=== PATIENT | male | born 1975 | race Caucasian/White ===

== ENCOUNTER 2018-06-15 19:09 | Outpatient (CLI) | payer OTHER ==
--- NOTE | 2018-06-16 01:19 | Ultrasound Report ---
Reason: ABDOMINAL PAIN,RIGHT UPPER QUADRANT Procedure Date: 06/15/2018 Accession Number: [id number] / [id number] Procedure: US - Abdomen Complete CPT Code: FULL RESULT: EXAM: ABDOMEN ULTRASOUND EXAM DATE: 06/15/2018 08:07 PM. CLINICAL HISTORY: ABDOMINAL PAIN,RIGHT UPPER QUADRANT. COMPARISON: None. TECHNIQUE: Real-time scanning was performed with static images obtained. FINDINGS: Liver: Liver parenchyma is heterogeneous and mildly hyperechoic. No discrete liver masses or intrahepatic bile duct dilation. However, evaluation for masses is limited secondary to the echogenicity. 16 cm. Main portal vein flow: Hepatopetal. Gallbladder: Gallstones are noted. No pericholecystic fluid or gallbladder wall thickening. Negative sonographic Leon's sign. Biliary System: Common bile duct measures 3.9 mm. No intrahepatic or extrahepatic ductal dilatation. Pancreas: Visualized portion is unremarkable. Kidneys: Right: 11.5 cm longitudinally. Normal. No contour-deforming mass, stones, or hydronephrosis. Left: 11.3 cm longitudinally. Normal. No contour-deforming mass, stones, or hydronephrosis. Spleen: 10 x 5.1 x 4.6 cm. Normal in size and echotexture. Aorta and Inferior Vena Cava: Not well seen due to bowel gas. No definite aneurysm of the mid and distal abdominal aorta. Proximal aorta not seen. Normal IVC. Other: Study limited due to bowel gas and body habitus. IMPRESSION: 1. Study limited due to body habitus and bowel gas. 2. Fatty liver. No mass. 3. Gallstones. No sonographic findings concerning for acute cholecystitis. Normal caliber common bile duct. RADIA
== END 2018-06-15 19:10 | disposition home or self-care (01) ==
LOC: DI 19:09
PROVIDERS: ATTEND Family Medicine
DX: R10.11 Right upper quadrant pain (principal); K76.0 Fatty (change of) liver, not elsewhere classified; K80.20 Calculus of gallbladder without cholecystitis without obstruction
CPT/HCPCS: 76700

== ENCOUNTER 2018-06-29 09:00 | Outpatient (CLI) | payer OTHER | END 2018-06-29 09:01 | disposition home or self-care (01) | LOC: RT 09:00 | PROVIDERS: ATTEND Internal Medicine Gastroenterology | DX: E66.01 Morbid (severe) obesity due to excess calories (principal); H91.90 Unspecified hearing loss, unspecified ear; I10 Essential (primary) hypertension; K80.20 Calculus of gallbladder without cholecystitis without obstruction | CPT/HCPCS: 36415; 80053; 85025; 93005 ==

== ENCOUNTER 2018-06-29 09:12 | Outpatient (CLI) | payer OTHER ==
[2018-06-29 10:12] LABS: BASOPHILS % (AUTO) 0.7 %; EOSINOPHILS # (AUTO) 0.2 10^3/uL (0.0-0.7); EOSINOPHILS % (AUTO) 3.6 %; LYMPHOCYTES # (AUTO) 2.1 10^3/uL (1.5-3.5); LYMPHOCYTES % (AUTO) 32.2 %; MEAN CORPUSCULAR HEMOGLOBIN 27.2 pg (27.0-31.0); MEAN CORPUSCULAR HGB CONC 33.7 g/dL (32.0-36.0); MEAN CORPUSCULAR VOLUME 80.8 fL (80.0-94.0); MEAN PLATELET VOLUME 8.1 fL (7.4-11.4); MONOCYTES # (AUTO) 0.4 10^3/uL (0.0-1.0); NEUTROPHILS # (AUTO) 3.6 10^3/uL (1.5-6.6); NEUTROPHILS % (AUTO) 56.5 %; PLT - PLATELET COUNT 287 10^3/uL (130-450); RED BLOOD COUNT 5.14 10^6/uL (4.70-6.10); RED CELL DISTRIBUTION WIDTH 13.5 % (12.0-15.0); WHITE BLOOD COUNT 6.4 x10^3/uL (4.8-10.8)
[2018-06-29 10:26] LABS: BILIRUBIN,TOTAL 0.6 mg/dL (0.2-1.0); CALCIUM 9.3 mg/dL (8.5-10.3); CREATININE 0.8 mg/dL (0.6-1.2); TOTAL PROTEIN 7.9 g/dL (6.7-8.2)
== END 2018-06-29 09:13 | disposition home or self-care (01) ==
LOC: LAB 09:12
PROVIDERS: ATTEND Internal Medicine Gastroenterology
DX: E66.01 Morbid (severe) obesity due to excess calories (principal); I10 Essential (primary) hypertension; K80.20 Calculus of gallbladder without cholecystitis without obstruction
CPT/HCPCS: 36415; 80053; 85025

== ENCOUNTER 2018-07-03 10:23 | Day surgery (SDC) | payer OTHER ==
[2018-07-03] MEDS ORDERED: LACTATED RINGERS 1,000 ML IV ONE ×2 (10:39→13:23)
[2018-07-03] MEDS ORDERED: ceFAZolin 2 GM/50 ML 2 GM/50 ML BAG IV ONE ×2 (11:06→13:15)
--- NOTE | 2018-07-03 11:09 | ANESTHESIA ---
Pre-Anesthesia VS, & Labs - Diagnosis Gallstones - Procedure Lap kurt Vital Signs: Temp Pulse Resp BP Pulse Ox 37.4 C 82 16 145/95 H 94 07/03/18 16:25 07/03/18 16:25 07/03/18 16:25 07/03/18 16:25 07/03/18 16:25 Height 6 ft 2 in Height 6 ft 2 in Weight (kg) 141.1 kg Home Medications and Allergies Home Medications: Ambulatory Orders Multivitamin [Multiple Vitamins] 1 each PO DAILY 06/30/18 Olmesartan/Hydrochlorothiazide [Benicar Hct 40-12.5 mg Tablet] 40 mg PO DAILY 05/27/14 Multivitamin [Multiple Vitamins] 1 each PO DAILY 06/30/18 Allergies/Adverse Reactions: Allergies Allergy/AdvReac Type Severity Reaction Status Date / Time No Known Drug Allergies Allergy Verified 01/26/16 07:34 Anes History & Medical History - Medical History Cardiovascular: reports: Hypertension, Arrhythmia Pulmonary: reports: None Gastrointestinal: reports: None Urinary: reports: Kidney stones Musculoskeletal: reports: None Endocrine/Autoimmune: reports: None Skin: reports: None Smoking Status: Never smoker
[2018-07-03] MEDS ORDERED: BUPIVACAINE 0.5% PF 30 ML VIAL ONE (11:43)
--- NOTE | 2018-07-03 11:50 | ANESTHESIA ---
Pre-Anesthesia VS, & Labs - Diagnosis Symptomatic gallstones - Procedure Lap Eva with possible IOC Vital Signs: Temp Pulse Resp BP Pulse Ox 36.6 C 81 16 153/97 H 95 07/03/18 10:35 07/03/18 10:35 07/03/18 10:35 07/03/18 10:35 07/03/18 10:35 Height 6 ft 2 in Weight (kg) 141.1 kg - NPO >8 hours Last Fluid Intake: 0600 H2O Home Medications and Allergies Home Medications: Ambulatory Orders Multivitamin [Multiple Vitamins] 1 each PO DAILY 06/30/18 Olmesartan/Hydrochlorothiazide [Benicar Hct 40-12.5 mg Tablet] 40 mg PO DAILY 05/27/14 Multivitamin [Multiple Vitamins] 1 each PO DAILY 06/30/18 Allergies/Adverse Reactions: Allergies Allergy/AdvReac Type Severity Reaction Status Date / Time No Known Drug Allergies Allergy Verified 01/26/16 07:34 Anes History & Medical History - Anesthetic History Family history of Anesthesia Complications: Denies Family history of Malignant Hyperthermia: Denies - Medical History Cardiovascular: reports: Hypertension Pulmonary: reports: None Gastrointestinal: reports: None Urinary: reports: Kidney stones Neuro: reports: None Musculoskeletal: reports: None Endocrine/Autoimmune: reports: None Blood Disorders: reports: None Skin: reports: None Smoking Status: Never smoker Exam General: Alert, Oriented x3, Cooperative, No acute distress Dental: WNL, Other (promenent incisors) Mouth Openin Fingerbreadth Neck Mobility: Normal Mallampati classification: II Thyromental Distance: 4-6 cm Respiratory: Lungs clear, Normal breath sounds, No respiratory distress, No accessory muscle use Cardiovascular: Regular rate, Normal S1, Normal S2, No murmurs Mental/Cognitive Status: Alert/Oriented X3, Normal for patient Plan Anesthesia Type: General Consent for Procedure(s) Verified and Reviewed: Yes Code Status: Attempt Resuscitation ASA classification: 2-Mild systemic disease Is this case an emergency?: No
[2018-07-03] MEDS ORDERED: BUPIVACAINE 0.5%-EPI 1:200000 PF 30 ML VIAL ONE (12:17)
[2018-07-03] MEDS ORDERED: PROPOFOL 200 MG/20 ML VIAL IVP ONE (13:15)
[2018-07-03] MEDS ORDERED: KETOROLAC 30 MG/ML VIAL IVP ONE (13:15)
[2018-07-03] MEDS ORDERED: MIDAZOLAM 2 MG/2 ML VIAL IVP ONE (13:15)
[2018-07-03] MEDS ORDERED: ROCURONIUM 50 MG/5 ML VIAL IVP ONE (13:15)
[2018-07-03] MEDS ORDERED: DEXAMETHASONE 4 MG/ML VIAL IVP ONE (13:15)
[2018-07-03] MEDS ORDERED: fentaNYL 250 MCG/5 ML VIAL IVP ONE (13:15)
[2018-07-03] MEDS ORDERED: ONDANSETRON 4 MG/2 ML VIAL IVP ONE (13:15)
[2018-07-03] MEDS ORDERED: BUPIVACAINE 0.5%-EPI 1:200000 PF 10 ML VIAL SUBQ ONE ×2 (13:26→14:38)
[2018-07-03] MEDS ORDERED: SUGAMMADEX 200 MG/2 ML VIAL IVP ONE (13:56)
[2018-07-03] MEDS ORDERED: SUGAMMADEX 500 MG/5 ML VIAL IVP ONE (13:59)
[2018-07-03] MEDS ORDERED: ONDANSETRON 4 MG/2 ML VIAL IVP PRN (14:55)
[2018-07-03] MEDS ORDERED: IBUPROFEN 600 MG TABLET PO PRN (14:55)
[2018-07-03] MEDS ORDERED: ACETAMINOPHEN 325 MG TABLET PO PRN (14:55)
[2018-07-03] MEDS ORDERED: oxyCODONE 5 MG TABLET PO PRN (14:55)
[2018-07-03 16:27] VITALS: BP 145/95
--- NOTE | 2018-07-04 02:26 | OPERATIVE REPORT ---
DATE OF SERVICE: 07/03/2018 Physician: Elton Crump MD PREOPERATIVE DIAGNOSIS: Symptomatic gallbladder disease. POSTOPERATIVE DIAGNOSIS: Symptomatic gallbladder disease. PROCEDURE PERFORMED: Laparoscopic cholecystectomy. ANESTHESIA: General endotracheal by Deja Aguilar CRNA. SURGEON: Elton Crump MD. ESTIMATED BLOOD LOSS: 10 mL. COMPLICATIONS: None. FINDINGS: Laparoscopy revealed a chronically thickened gallbladder with mild pericholecystic adhesio ns, normal-appearing stomach, duodenum, large bowel, and liver, which appeared to be enlarged, consis tent with fatty change. Cystic duct was of normal caliber. Common duct was not visualized. Followi ng resection, the gallbladder was seen to contain innumerable yellow multifaceted stones of varying s izes and shapes measuring from 1 mm up to 15 mm in size. Several hundred were present. INDICATIONS: Patient is a 43-year-old gentleman with recurrent episodes of right upper quadrant pain , postprandial in nature. Evaluation included ultrasonography showing multiple gallstones within the gallbladder, normal bile ducts, normal chemistries except for mild transaminase elevation. He was f elt to be suffering from symptomatic gallbladder disease and advised to undergo laparoscopic cholecys tectomy. TECHNIQUE: After informed consent, the patient was taken to the operating room and was placed under general endotracheal anesthesia. Preoperative preparation included application of sequential calf co mpression boots and administration of 3 grams of cefazolin intravenously within an hour of the incisi on. Morbid obesity made the surgery technically challenging. A transverse incision was made along the superior edge of the umbilicus and carried down through the layers of the abdominal wall until the peritoneum was identified and entered sharply. A 10 mm Magen cannula was inserted and pneumoperitoneum achieved with carbon dioxide. A 10 mm 30-degree Juan t elescope was inserted. Laparoscopy was carried out with findings noted above. Three additional 5 mm ports were placed in the right upper quadrant. The gallbladder was grasped and retracted in a cepha lad and lateral direction. Pericholecystic adhesions were lysed with electrocautery. The cystic tri angle of Calot was exposed and carefully dissected, isolating the cystic duct and artery adjacent to the gallbladder. The critical view of safety was obtained. The cystic duct was triply clipped dista lly, doubly proximally, and divided between. The cystic artery was doubly clipped proximally and dis tally and divided between. The gallbladder was excised from the liver bed using electrocautery for d issection and hemostasis. It was detached intact, placed in an organ retrieval bag, extracted from t he umbilical port site, opened on the side table with findings noted above and then the tissue sent f or pathologic evaluation. After hemostasis had been assured, the right upper quadrant was copiously irrigated with saline solut ion, following which instruments and cannulas were removed under direct vision. Pneumoperitoneum was allowed to escape and the incisions were closed in layers using continuous 0 Vicryl, reapproximated in the midline fascia at the umbilicus, followed by 4-0 Monocryl subcuticular skin closure at all the port sites. Then 30 mL of 0.5% Marcaine with epinephrine was infiltrated into the incision to amadou t in postoperative analgesia. Dermabond was applied. Anesthesia was terminated and patient was juan sferred to the recovery room in satisfactory condition. Sponge and needle counts were correct x2. N o drains were used. TD: 07/03/2018 15:18
== END 2018-07-03 10:24 | disposition home or self-care (01) ==
LOC: SDS 10:23
PROVIDERS: ATTEND Internal Medicine Gastroenterology
PROC: 0FT44ZZ Resection of Gallbladder, Percutaneous Endoscopic Approach (ICD-10-PCS; principal; 2018-07-03 12:54)
DX: K80.10 Calculus of gallbladder with chronic cholecystitis without obstruction (principal); I10 Essential (primary) hypertension; E66.01 Morbid (severe) obesity due to excess calories; Z68.41 Body mass index [BMI] 40.0-44.9, adult; I49.9 Cardiac arrhythmia, unspecified
CPT/HCPCS: 47562; J0690; J3010; J7120

== ENCOUNTER 2019-10-10 05:12 | Emergency (ER) | payer OTHER ==
[2019-10-10 05:38] LABS: BILIRUBIN,URINE NEGATIVE (NEGATIVE); GLUCOSE, URINE (UA) NEGATIVE (NEGATIVE); KETONES,URINE (UA) NEGATIVE (NEGATIVE); LEUKOCYTE ESTERASE, URINE NEGATIVE (NEGATIVE); NITRITE,URINE NEGATIVE (NEGATIVE); OCCULT BLOOD,URINE TRACE-INTA (NEGATIVE); PROTEIN,URINE NEGATIVE (NEGATIVE); UROBILINOGEN,URINE 0.2 (NORMAL) E.U./dL (NORMAL)
[2019-10-10 05:40] LABS: CLARITY,URINE CLEAR (CLEAR)
[2019-10-10] MEDS ORDERED: KETOROLAC 30 MG/ML VIAL IVP STA (06:16)
[2019-10-10 06:34] LABS: BASOPHILS # (AUTO) 0.1 10^3/uL (0.0-0.1); BASOPHILS % (AUTO) 0.6 %; EOSINOPHILS # (AUTO) 0.3 10^3/uL (0.0-0.7); EOSINOPHILS % (AUTO) 3.3 %; HGB - HEMOGLOBIN 13.8 g/dL (14.0-18.0); LYMPHOCYTES # (AUTO) 3.1 10^3/uL (1.5-3.5); LYMPHOCYTES % (AUTO) 31.6 %; MEAN CORPUSCULAR HGB CONC 32.3 g/dL (32.0-36.0); MEAN CORPUSCULAR VOLUME 83.6 fL (80.0-94.0); MEAN PLATELET VOLUME 10.4 fL (7.4-11.4); MONOCYTES # (AUTO) 0.8 10^3/uL (0.0-1.0); MONOCYTES % (AUTO) 8.5 %; NEUTROPHILS # (AUTO) 5.5 10^3/uL (1.5-6.6); NEUTROPHILS % (AUTO) 55.8 %; PLT - PLATELET COUNT 313 10^3/uL (130-450); RED BLOOD COUNT 5.11 10^6/uL (4.70-6.10); WHITE BLOOD COUNT 9.8 x10^3/uL (4.8-10.8)
[2019-10-10 06:46] LABS: ALBUMIN/GLOBULIN RATIO 1.1 (1.0-2.2); BILIRUBIN,TOTAL 0.4 mg/dL (0.2-1.0); CALCIUM 9.2 mg/dL (8.5-10.3); CREATININE 0.9 mg/dL (0.6-1.2); TOTAL PROTEIN 7.8 g/dL (6.7-8.2)
[2019-10-10 06:49] VITALS: BP 138/88
--- NOTE | 2019-10-10 06:50 | CT Report ---
Reason: R flank pain Procedure Date: 10/10/2019 Accession Number: [id number] / [id number] Procedure: CT - Abdomen/Pelvis WO CPT Code: Final Report FULL RESULT: EXAM: CT ABDOMEN AND PELVIS EXAM DATE:10/10/2019 06:39 AM CLINICAL HISTORY: Right flank pain. History of urinary stones. COMPARISONS: None. TECHNIQUE: Routine helical CT imaging was performed through the abdomen and pelvis without IV contrast or oral contrast. Reconstructions: Coronal and sagittal. In accordance with CT protocol optimization, one or more of the following dose reduction techniques were utilized for this exam: automated exposure control, adjustment of mA and/or KV based on patient size, or use of iterative reconstruction technique. FINDINGS: Lung Bases: Unremarkable. Liver: The liver is globally enlarged measuring 19.3 cm.. Gallbladder/Bile Ducts: The gallbladder surgically absent. No bile duct dilatation. Spleen: Unremarkable. Pancreas: Unremarkable. Adrenal Glands: Unremarkable. Kidneys: A 2 mm stone at the distal right ureter results in moderate right hydroureter and hydronephrosis without appreciable perinephric stranding. The left kidney is intact. No left obstructive urinary stones. Peritoneal Cavity/Bowel: Colonic diverticula. Otherwise, the bowel is normal in caliber and contour. Pelvic Organs: Unremarkable. Vasculature: Unremarkable. Bones: Unremarkable. Other: None. IMPRESSION: 1. Obstructive uropathy: 2 mm obstructing stone at the right distal ureter. 2. Colonic diverticulosis. 3. Hepatomegaly. 4. Status post cholecystectomy. RADIA
--- NOTE | 2019-10-10 06:57 | ED Physician Documentation ---
PD HPI ABD PAIN - Stated complaint Stated Complaint: R SIDE BACK PX - Chief complaint Chief Complaint: Back Pain - History obtained from History obtained from: Patient - History of Present Illness Timing - onset: Today (44-year-old gentleman with remote history of kidney stones. Never needed an intervention, kidney stones about 15 years ago. He has had urgency without dysuria for about 2 weeks. At the outset he had mild right flank pain. Since then he really has not had any pain until this morning at 3 AM when he had more severe right flank pain which is nonradiating. Some very mild nausea. No vomiting. No changes in bowel movements.) - Treatment prior to arrival Treatment prior to arrival: He called his primary care physician who did a telehealth appointment a few days ago. He was prescribed Flomax which he has been taking for presumed kidney stone. Review of Systems Constitutional: denies: Fever, Chills Cardiac: denies: Chest pain / pressure, Palpitations Respiratory: denies: Dyspnea, Cough GI: reports: Abdominal Pain, Nausea. denies: Vomiting PD PAST MEDICAL HISTORY - Past Medical History Past Medical History: Yes Cardiovascular: Hypertension Respiratory: None Neuro: None Endocrine/Autoimmune: None GI: None : Kidney stones HEENT: Chronic hearing loss, Other Psych: None Musculoskeletal: None Derm: None - Past Surgical History Past Surgical History: No - Present Medications Home Medications: Ambulatory Orders Medication Instructions Recorded Confirmed Olmesartan/Hydrochlorothiazide 40 mg PO DAILY 05/27/14 06/30/18 [Benicar Hct 40-12.5 mg Tablet] Multivitamin [Multiple Vitamins] 1 each PO DAILY 06/30/18 06/30/18 Hydrocodone/Acetaminophen 1 - 2 each PO Q6H PRN #14 tablet 10/10/19 [Hydrocodon-Acetaminophen 5-325] Ibuprofen [Motrin] 800 mg PO Q8H PRN #30 tablet 10/10/19 - Allergies Allergies/Adverse Reactions: Allergies Allergy/AdvReac Type Severity Reaction Status Date / Time No Known Drug Allergies Allergy Verified 10/10/19 05:26 - Social History Does the pt smoke?: No Smoking Status: Never smoker Does the pt drink ETOH?: No Does the pt have substance abuse?: No - Immunizations Immunizations are current?: Yes - POLST Patient has POLST: No PD ED PE NORMAL - Vitals Vital signs reviewed: Yes - General General: Alert and oriented X 3, No acute distress - HEENT HEENT: PERRL, EOMI - Neck Neck: Supple, no meningeal sign, No bony TTP - Cardiac Cardiac: RRR, No murmur - Respiratory Respiratory: No respiratory distress, Clear bilaterally - Abdomen Abdomen: Normal bowel sounds, Soft, Non tender - Extremities Extremities: No edema, No calf tenderness / cord - Neuro Neuro: Alert and oriented X 3, Normal speech Results - Vitals Vitals: Vital Signs - 24 hr 10/10/19 10/10/19 10/10/19 05:24 06:10 06:27 Temperature 36.8 C Heart Rate 68 79 Respiratory 17 17 16 Rate Blood Pressure 165/90 H 143/94 H O2 Saturation 95 99 10/10/19 10/10/19 06:38 06:45 Temperature Heart Rate 58 L Respiratory 17 16 Rate Blood Pressure 138/88 H O2 Saturation 98 Oxygen O2 Source Room air - Labs Labs: Laboratory Tests 10/10/19 10/10/19 10/10/19 05:15 05:45 05:45 WBC 9.8 RBC 5.11 Hgb 13.8 L Hct 42.7 MCV 83.6 MCH 27.0 MCHC 32.3 RDW 12.0 Plt Count 313 MPV 10.4 Neut # (Auto) 5.5 Lymph # (Auto) 3.1 [place] # (Auto) 0.8 Eos # (Auto) 0.3 Baso # (Auto) 0.1 Absolute Nucleated RBC 0.00 Nucleated RBC % 0.0 Sodium 135 Potassium 3.9 Chloride 98 L Carbon Dioxide 27 Anion Gap 10.0 BUN 16 Creatinine 0.9 Estimated GFR (MDRD) 92 Glucose 113 H Calcium 9.2 Total Bilirubin 0.4 AST 40 ALT 29 Alkaline Phosphatase 72 Total Protein 7.8 Albumin 4.0 Globulin 3.8 Albumin/Globulin Ratio 1.1 Lipase 31 Urine Color YELLOW Urine Clarity CLEAR Urine pH 6.0 Ur Specific [place] 1.020 Urine Protein NEGATIVE Urine Glucose (UA) NEGATIVE Urine Ketones NEGATIVE Urine Occult Blood TRACE-INTA Urine Nitrite NEGATIVE Urine Bilirubin NEGATIVE Urine Urobilinogen 0.2 (NORMAL) Ur Leukocyte Esterase NEGATIVE Ur Microscopic Review NOT INDICATED Urine Culture Comments NOT INDICATED PD MEDICAL DECISION MAKING - ED course ED course: He was almost pain-free after shot of Toradol. CT of the abdomen and pelvis interpreted contemporaneously by me shows 2 mm right UVJ stone and incidentally noted diverticulosis, hepatomegaly and status post cholecystectomy status. Departure - Departure Disposition: 01 Home, Self Care Clinical Impression: Renal colic on right side Condition: Good Record reviewed to determine appropriate education?: Yes Instructions: ED Stone Renal W Colic Prescriptions: Hydrocodone/Acetaminophen [Hydrocodon-Acetaminophen 5-325] 1 - 2 each PO Q6H PRN #14 tablet PRN Reason: pain Ibuprofen [Motrin] 800 mg PO Q8H PRN #30 tablet PRN Reason: PAIN &/OR FEVER Comments: As discussed, you have a 2 mm kidney stone almost in the bladder. It is unlikely you will need to follow-up with the specialist, that said a referral is on this form should pain continue more than a few more days. Use the urine strainers as discussed. Follow-up with your primary care physician.
== END 2019-10-10 07:09 | disposition home or self-care (01) ==
LOC: ED 05:12
DX: N13.2 Hydronephrosis with renal and ureteral calculous obstruction (principal); N20.1 Calculus of ureter; I10 Essential (primary) hypertension
CPT/HCPCS: 36415; 74176; 80053; 81001; 81003; 83690; 85025; 87086; 96374; 99284

== ENCOUNTER 2020-10-29 08:00 | Outpatient (CLI) | payer OTHER | END 2020-10-29 23:59 | disposition home or self-care (01) | LOC: LAB.S 08:00 | PROVIDERS: ATTEND Physician Assistant Medical | DX: R31.9 Hematuria, unspecified (principal) | CPT/HCPCS: 87086 ==

== ENCOUNTER 2020-12-09 12:28 | Emergency (ER) | payer OTHER ==
[2020-12-09 12:54] LABS: BASOPHILS # (AUTO) 0.1 10^3/uL (0.0-0.1); BASOPHILS % (AUTO) 0.7 %; EOSINOPHILS # (AUTO) 0.3 10^3/uL (0.0-0.7); HCT - HEMATOCRIT 46.7 % (42.0-52.0); HGB - HEMOGLOBIN 15.2 g/dL (14.0-18.0); LYMPHOCYTES # (AUTO) 3.3 10^3/uL (1.5-3.5); MEAN CORPUSCULAR HEMOGLOBIN 26.7 pg (27.0-31.0); MEAN CORPUSCULAR HGB CONC 32.5 g/dL (32.0-36.0); MEAN CORPUSCULAR VOLUME 82.1 fL (80.0-94.0); MEAN PLATELET VOLUME 9.7 fL (7.4-11.4); MONOCYTES # (AUTO) 0.8 10^3/uL (0.0-1.0); NEUTROPHILS # (AUTO) 5.6 10^3/uL (1.5-6.6); PLT - PLATELET COUNT 335 10^3/uL (130-450); RED BLOOD COUNT 5.69 10^6/uL (4.70-6.10); RED CELL DISTRIBUTION WIDTH 11.9 % (12.0-15.0); WHITE BLOOD COUNT 10.1 x10^3/uL (4.8-10.8)
--- NOTE | 2020-12-09 12:55 | ED Physician Documentation ---
History of Present Illness - Stated complaint Stated Complaint: ABD PX - Chief complaint Chief Complaint: Abd Pain - Additonal information Additional information: 45-year-old male presents the emergency department for evaluation of about 1 mo nth left flank pain. He reports that he did go to one of our local walk-in clinics and had a urinalysis performed that did show blood. This patient does have a history of nephrolithiasis and the presumptive diagnosis was nephrolithiasis. The patient was given a 1 month prescription of Flomax but despite completing this prescription he continues to have vague but a fairly constant dull ache in his left flank. There have been no fevers or vomiting. No dysuria. The pain does sometimes radiate down to his left testes. Past medical history includes hypertension for which she is compliant with his medications. No tobacco or nicotine products no alcohol. He has never required surgical intervention or evaluation for his kidney stones. Review of Systems Constitutional: denies: Fever, Chills Eyes: reports: Reviewed and negative Ears: reports: Reviewed and negative Throat: reports: Reviewed and negative Cardiac: reports: Reviewed and negative Respiratory: reports: Reviewed and negative GI: reports: Abdominal Pain. denies: Nausea, Vomiting, Constipation, Diarrhea : denies: Dysuria, Frequency, Hesitancy, Hematuria Skin: reports: Reviewed and negative Musculoskeletal: reports: Reviewed and negative Neurologic: reports: Reviewed and negative PD PAST MEDICAL HISTORY - Past Medical History Cardiovascular: Hypertension Respiratory: None Neuro: None Endocrine/Autoimmune: None GI: None : Kidney stones HEENT: Chronic hearing loss, Other Psych: None Musculoskeletal: None Derm: None - Past Surgical History Past Surgical History: No - Present Medications Home Medications: Ambulatory Orders Medication Instructions Recorded Confirmed Olmesartan/Hydrochlorothiazide 40 mg PO DAILY 05/27/14 06/30/18 [Benicar Hct 40-12.5 mg Tablet] Multivitamin [Multiple Vitamins] 1 each PO DAILY 06/30/18 06/30/18 Hydrocodone/Acetaminophen 1 - 2 each PO Q6H PRN #14 tablet 10/10/19 [Hydrocodon-Acetaminophen 5-325] Ibuprofen [Motrin] 800 mg PO Q8H PRN #30 tablet 10/10/19 - Allergies Allergies/Adverse Reactions: Allergies Allergy/AdvReac Type Severity Reaction Status Date / Time No Known Drug Allergies Allergy Verified 12/09/20 12:38 - Social History Does the pt smoke?: No Smoking Status: Never smoker Does the pt drink ETOH?: No Does the pt have substance abuse?: No - Immunizations Immunizations are current?: Yes - POLST Patient has POLST: No PD ED PE EXPANDED - General General: Alert, No acute distress, Well developed/nourished, Other (Obese) - HEENT HEENT: Pharynx normal - Neck Neck: Supple w/out meningeal sx. No: Adenopathy - Cardiac Cardiac: Regular Rate, Radial strong equal, Cap refill < 2 sec. No: Murmur Present - Respiratory Respiratory: Clear to ausultation vimal. No: Distress, Labored - Abdomen Abdomen: Normal Bowel sounds, Tender to palpation (Mild tenderness to the left flank without guarding or rebound. No CVA tenderness elicited. Negative McBurney's.) - Derm Derm: Normal color, Warm and dry. No: Rash - Extremities Extremities: Normal. No: Deformity, Tenderness - Neuro Neuro: Alert and Oriented X 3, CNII-XII intact - GCS Eye Opening: Spontaneous Motor: Obeys Commands Verbal: Oriented Total: 15 Results - Vitals Vitals: Vital Signs - 24 hr 12/09/20 12:31 Temperature 36.4 C L Heart Rate 80 Respiratory 16 Rate Blood Pressure 164/92 H O2 Saturation 98 Oxygen O2 Source Room air - Labs Labs: Laboratory Tests 12/09/20 12/09/20 12/09/20 12:44 12:44 12:44 WBC 10.1 RBC 5.69 Hgb 15.2 Hct 46.7 MCV 82.1 MCH 26.7 L MCHC 32.5 RDW 11.9 L Plt Count 335 MPV 9.7 Neut # (Auto) 5.6 Lymph # (Auto) 3.3 [place] # (Auto) 0.8 Eos # (Auto) 0.3 Baso # (Auto) 0.1 Absolute Nucleated RBC 0.00 Nucleated RBC % 0.0 Sodium 138 Potassium 3.6 Chloride 99 L Carbon Dioxide 27 Anion Gap 12.0 BUN 17 Creatinine 0.9 Estimated GFR (MDRD) 92 Glucose 110 H Calcium 9.9 Total Bilirubin 0.5 AST 27 ALT 32 Alkaline Phosphatase 72 Total Protein 8.6 H Albumin 4.7 Globulin 3.9 Albumin/Globulin Ratio 1.2 Lipase 40 Urine Color YELLOW Urine Clarity HAZY Urine pH 7.5 Ur Specific [place] 1.015 Urine Protein NEGATIVE Urine Glucose (UA) NEGATIVE Urine Ketones NEGATIVE Urine Occult Blood MODERATE H Urine Nitrite NEGATIVE Urine Bilirubin NEGATIVE Urine Urobilinogen 0.2 (NORMAL) Ur Leukocyte Esterase NEGATIVE Urine RBC 11-25 H Urine WBC 0-3 Ur Squamous Epith Cells FEW Squamous Amorphous Sediment Few Urine Bacteria Rare Urine Casts 0-2 RBC Casts Urine Mucus Few Strands Ur Microscopic Review INDICATED Urine Culture Comments NOT INDICATED - Rads (name of study) CT abd/pelv w Radiology: Final report received (Finding is suggestive of a 7 mm partially obstructing stone in the left renal pelvis dependent portion with very mild left-sided hydronephrosis. No hydroureter. No right-sided renal stone or hydronephrosis. Normal-appearing urinary bladder. Degenerative disc disease in lumbar spine) PD MEDICAL DECISION MAKING - ED course Complexity details: reviewed results, re-evaluated patient, d/w patient ED course: 45-year-old male presents the emergency department for evaluation of persistent though dull left flank pain for about 1 month. This is in the setting of a known history of nephrolithiasis. He did attempt a trial of Flomax without change in symptoms. Today screening labs show no significant unexpected abnormalities. There is hematuria as expected but no findings of infection in the urine. He does have preserved renal function. A CT of the abdomen does show a 7 mm partially obstructing stone in the left renal pelvis with a small amount of left-sided hydronephrosis. There was no hydroureter. These findings were discussed with the patient. At this time he will be referred to urology for follow-up as he may need urological intervention as the stone does not seem to be passing after 1 month. Recommended ibuprofen with food for discomfort. Emergent return precautions were discussed for worsening symptoms. Departure - Departure Disposition: 01 Home, Self Care Clinical Impression: Nephrolithiasis Hydronephrosis Qualifiers: Hydronephrosis type: with renal calculous obstruction Qualified Code(s): N13.2 - Hydronephrosis with renal and ureteral calculous obstruction Condition: Stable Record reviewed to determine appropriate education?: Yes Instructions: Hydronephrosis Ch Follow-Up: Ángela Munoz MD [Provider Admit Priv/Credential] - Comments: Flaco jacobsen were seen today for about 1 month of left flank pain. Your screening labs today are essentially normal. Your kidney function is normal. Your urine shows blood in it as expected with kidney stones but there is no findings of infection. The CT scan does show a 7 mm partially obstructing stone in the left renal pelvis with a very mild amount of hydronephrosis or swelling in the kidney. Because the stone seems to have been present for at least a month and is not passing I do think it would benefit you to be seen by a urologist. Your primary care provider will likely need to make a referral but I do recommend that you go to [facility] urology for follow-up. I have given you the name of Dr. Munoz who may be able to see you. Return to the ER for fevers, uncontrolled vomiting suddenly severe or different pain. I do recommend that you take Tylenol or ibuprofen [id number] for aching discomfort that you feel is worsening
[2020-12-09 12:59] LABS: BILIRUBIN,URINE NEGATIVE (NEGATIVE); GLUCOSE, URINE (UA) NEGATIVE (NEGATIVE); KETONES,URINE (UA) NEGATIVE (NEGATIVE); LEUKOCYTE ESTERASE, URINE NEGATIVE (NEGATIVE); NITRITE,URINE NEGATIVE (NEGATIVE); OCCULT BLOOD,URINE MODERATE (NEGATIVE); PH,URINE 7.5 PH (5.0-7.5); PROTEIN,URINE NEGATIVE (NEGATIVE); UROBILINOGEN,URINE 0.2 (NORMAL) E.U./dL (NORMAL)
[2020-12-09 13:00] LABS: CLARITY,URINE HAZY (CLEAR)
[2020-12-09 13:12] LABS: ALBUMIN 4.7 g/dL (3.2-5.5); ALBUMIN/GLOBULIN RATIO 1.2 (1.0-2.2); BILIRUBIN,TOTAL 0.5 mg/dL (0.2-1.0); CALCIUM 9.9 mg/dL (8.5-10.3); CREATININE 0.9 mg/dL (0.6-1.2); POTASSIUM 3.6 mmol/L (3.5-5.0); TOTAL PROTEIN 8.6 g/dL (6.7-8.2)
[2020-12-09 13:27] LABS: AMORPHOUS SEDIMENT,UR Few /LPF; BACTERIA,URINE Rare /HPF (None Seen); CASTS, URINE 0-2 RBC Casts /LPF; MUCUS,URINE Few Strands; SQUAMOUS EPITHELIAL CELL,UR FEW Squamous (<= Few); WBC,URINE 0-3 /HPF (0-3)
[2020-12-09] MEDS ORDERED: IOVERSOL 320 100 ML VIAL IVP ONE ×2 (13:48→14:42)
--- NOTE | 2020-12-09 14:17 | CT Report ---
PROCEDURE: Abdomen/Pelvis W INDICATIONS: left flank pain; ? obstructing stone CONTRAST: IV CONTRAST: Optiray 320 ml: 100 PO CONTRAST: *NO PO CONTRAST TECHNIQUE: After the administration of IV contrast, 5 mm thick sections acquired from the diaphragms to the symp hysis. 5 mm thick coronal and sagittal reformats were acquired. For radiation dose reduction, the f ollowing was used: automated exposure control, adjustment of mA and/or kV according to patient size. COMPARISON: 10/10/2019. FINDINGS: Image quality: Excellent. ABDOMEN: Lung bases: Lung bases are clear. Heart size is normal. Solid organs: Liver and spleen are normal in size and enhancement. Gallbladder is surgically absent Biliary system is non dilated. Pancreas enhances normally. No adrenal nodules. Bilateral kidneys are normal in size and show normal enhancement. Prominence of left renal collecting system and left renal pelvis is seen with several millimeter calcification seen in dependent portion of left renal pelvis. Bilateral ureters are within normal limits. Peritoneum and bowel: Bowel loops demonstrate normal wall thickness and caliber. No free fluid or a ir. Nodes and vessels: No retroperitoneal or mesenteric adenopathy by size criteria. Aorta and inferior vena cava are normal in size. Miscellaneous: No ventral hernias. PELVIS: Genitourinary: Bladder wall thickness is normal. Miscellaneous: No inguinal hernias or adenopathy. Bones: No suspicious bony lesions. No vertebral body compression fractures. Degenerative endplate changes are noted at L2-3 and L3-4 levels. IMPRESSION: 1. Finding is suggestive of a 7 mm partially obstructing stone in left renal pelvis dependent portion with very mild left-sided hydronephrosis. No hydroureter. No right-sided renal stone or hydronephros is. Normal-appearing urinary bladder. 2. No bowel obstruction or abnormal bowel wall thickening. No free fluid or free air. 3. Degenerative disc disease in lumbar spine as above. No acute compression fracture. Reviewed by: Ryland Vásquez MD on 12/09/2020 2:16 PM PDT Approved by: Ryland Vásquez MD on 12/09/2020 2:16 PM PDT Station ID: [id number]
[2020-12-09 14:52] VITALS: BP 139/92
== END 2020-12-09 14:53 | disposition home or self-care (01) ==
LOC: ED 12:28
DX: N13.2 Hydronephrosis with renal and ureteral calculous obstruction (principal); M51.36 Other intervertebral disc degeneration, lumbar region; I10 Essential (primary) hypertension
CPT/HCPCS: 36415; 74177; 80053; 81001; 83690; 85025; 99283; 99284; Q9967; 81003; 87086

== ENCOUNTER 2022-05-13 17:37 | Outpatient (CLI) | payer OTHER ==
--- NOTE | 2022-05-14 11:27 | XRAY Report ---
PROCEDURE: Ankle 3 View LT INDICATIONS: L ANKLE PAIN TECHNIQUE: 3 views of the ankle were acquired. COMPARISON: None FINDINGS: Bones: No displaced fracture. The ankle mortise appears intact. Soft tissues: No suspicious calcifications. Mild enthesopathy at the Achilles insertion. IMPRESSION: No acute radiographic abnormality. If there is high concern for further derangement, consider MRI harjinder luation. Reviewed by: Jeremiah Davila MD on 05/14/2022 11:25 AM [facility] Approved by: Jeremiah Davila MD on 05/14/2022 11:25 AM [facility] Station ID: [id number]
== END 2022-05-13 17:38 | disposition home or self-care (01) ==
LOC: DI 17:37
PROVIDERS: ATTEND Family Medicine
DX: M25.572 Pain in left ankle and joints of left foot (principal)

== ENCOUNTER 2022-09-04 14:59 | Emergency (ER) | payer OTHER ==
[2022-09-04] MEDS ORDERED: SODIUM CHLORIDE 0.9% 1,000 ML IV STA (15:13)
[2022-09-04] MEDS ORDERED: HYDROmorphone 1 MG/ML CARPUJECT IVP STA (15:13)
[2022-09-04] MEDS ORDERED: KETOROLAC 15 MG/ML VIAL IVP STA (15:13)
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
[2022-09-04] MEDS ORDERED: iohexoL-300 100 ML VIAL ONE (15:22)
[2022-09-04 15:29] LABS: BASOPHILS # (AUTO) 0.1 10^3/uL (0.0-0.1); BASOPHILS % (AUTO) 0.7 %; EOSINOPHILS # (AUTO) 0.2 10^3/uL (0.0-0.7); EOSINOPHILS % (AUTO) 2.8 %; HCT - HEMATOCRIT 43.9 % (42.0-52.0); HGB - HEMOGLOBIN 13.7 g/dL (14.0-18.0); LYMPHOCYTES % (AUTO) 29.9 %; MEAN CORPUSCULAR HEMOGLOBIN 26.1 pg (27.0-31.0); MEAN CORPUSCULAR HGB CONC 31.2 g/dL (32.0-36.0); MEAN CORPUSCULAR VOLUME 83.6 fL (80.0-94.0); MEAN PLATELET VOLUME 9.6 fL (7.4-11.4); MONOCYTES # (AUTO) 0.5 10^3/uL (0.0-1.0); MONOCYTES % (AUTO) 7.3 %; NEUTROPHILS # (AUTO) 3.9 10^3/uL (1.5-6.6); NEUTROPHILS % (AUTO) 58.4 %; PLT - PLATELET COUNT 301 10^3/uL (130-450); RED BLOOD COUNT 5.25 10^6/uL (4.70-6.10); RED CELL DISTRIBUTION WIDTH 12.6 % (12.0-15.0); WHITE BLOOD COUNT 6.7 x10^3/uL (4.8-10.8)
[2022-09-04 15:43] LABS: ALBUMIN/GLOBULIN RATIO 1.1 (1.0-2.2); BILIRUBIN,TOTAL 0.6 mg/dL (0.2-1.0); CALCIUM 9.3 mg/dL (8.5-10.3); CREATININE 0.8 mg/dL (0.6-1.2); POTASSIUM 3.6 mmol/L (3.5-5.0); TOTAL PROTEIN 7.8 g/dL (6.7-8.2)
[2022-09-04 16:29] VITALS: BP 132/80
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
[2022-09-04] MEDS ORDERED: oxyCODONE/ACET 5/325 Prepack 4 PO STA (17:27)
[2022-09-04] MEDS ORDERED: iohexoL-300 100 ML VIAL IVP ONE (17:30)
== END 2022-09-04 18:26 | disposition home or self-care (01) ==
LOC: EDUNIT# → ED 14:59
DX: S22.41XA Multiple fractures of ribs, right side, initial encounter for closed fracture (principal); S20.211A Contusion of right front wall of thorax, initial encounter; V89.2XXA Person injured in unspecified motor-vehicle accident, traffic, initial encounter; Y93.89 Activity, other specified
CPT/HCPCS: 36415; 70450; 71260; 72125; 74177; 80053; 83690; 85025; 96374; 96375; 99284; J1170; Q9967

== ENCOUNTER → 2022-09-04 | Outpatient (CLI) | payer OTHER | END | disposition critical access hospital (66) | LOC: EMS 14:46 | DX: S29.9XXA Unspecified injury of thorax, initial encounter (principal); V13.4XXA Pedal cycle driver injured in collision with car, pick-up truck or van in traffic accident, initial encounter; Y93.55 Activity, bike riding; Y92.413 State road as the place of occurrence of the external cause | CPT/HCPCS: A0425; A0427 ==

== ENCOUNTER 2023-08-04 17:10 | Emergency (ER) | payer OTHER ==
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
[2023-08-04] MEDS: HYDROmorphone 1 MG/ML CARPUJECT IM STA (17:44)
[2023-08-04] MEDS: KETOROLAC 60 MG/2 ML VIAL IM STA (17:44)
--- NOTE | 2023-08-04 18:05 | CT Report ---
PROCEDURE: Abdomen/Pelvis WO INDICATIONS: R flank pain TECHNIQUE: A CT scan of the abdomen and pelvis was performed without the use of intravenous contrast. Images we re recorded and evaluated at appropriate window settings. Reformats: coronal and sagittal. For radiat ion dose reduction, the following was used: automated exposure control, adjustment of mA and/or kV ac cording to patient size. COMPARISON: None. FINDINGS: Image quality: Diagnostic. Lower chest: Unremarkable. Liver: No contour-deforming mass. Gallbladder and biliary tree: No radiopaque stones or wall thickening. No biliary dilation. Spleen: No splenomegaly. Pancreas: No pancreatic ductal dilation. Adrenals: No adrenal nodule. Kidneys and ureters: Obstructing stone in the right UVJ measuring 5 mm x 2 mm. Moderate right-sided h ydronephroureter. Stomach, bowel and peritoneum: No bowel distension. No pathologic free fluid. Lymph nodes: No central or retroperitoneal adenopathy. Vessels: No infrarenal aortic aneurysm. PELVIS Reproductive organs: Unremarkable. Bladder: No wall thickness, accounting for underdistention. Pelvic lymph nodes: No pelvic adenopathy by size criteria. Bones: No aggressive osseous abnormality. Other: Small umbilical hernia containing fat. Small left inguinal hernia containing fat. IMPRESSION: Obstructing 5 x 2 mm stone in the right UVJ, resulting in moderate right-sided hydronephroureter. Reviewed by: Cleveland Merchant MD on 08/04/2023 6:03 PM PST Approved by: Cleveland Merchant MD on 08/04/2023 6:03 PM PST Station ID: [id number]
[2023-08-04 18:08] LABS: BILIRUBIN,URINE NEGATIVE (NEGATIVE); GLUCOSE, URINE (UA) NEGATIVE (NEGATIVE); KETONES,URINE (UA) NEGATIVE (NEGATIVE); LEUKOCYTE ESTERASE, URINE NEGATIVE (NEGATIVE); NITRITE,URINE NEGATIVE (NEGATIVE); OCCULT BLOOD,URINE MODERATE (NEGATIVE); PH,URINE 5.5 PH (5.0-7.5); PROTEIN,URINE NEGATIVE (NEGATIVE); UROBILINOGEN,URINE 0.2 (NORMAL) E.U./dL (NORMAL)
[2023-08-04 18:10] LABS: CLARITY,URINE CLEAR (CLEAR)
--- NOTE | 2023-08-04 18:16 | ED Physician Documentation ---
ED Addendum - Addendum Addendum: 08/04/23 18:[address] Wright at 6 PM shift change pending CT read and urinalysis. CT read received showing 5 x 2 mm right UVJ stone and urinalysis showing not unexpected blood. He was seen and examined at the bedside and feeling much better at 6:15 PM. I am sending prescriptions for Percocet, Flomax to [facility] and he will follow-up with urology. Disposition: Discharged home Condition: Stable Diagnosis: 1. Renal colic on the right side
[2023-08-04 18:21] LABS: BACTERIA,URINE None Seen /HPF (None Seen); SQUAMOUS EPITHELIAL CELL,UR NONE SEEN (<= Few); WBC,URINE 0-3 /HPF (0-3)
[2023-08-04 18:31] VITALS: BP 141/98; O2SAT 96
== END 2023-08-04 18:25 | disposition home or self-care (01) ==
LOC: ED 17:10
DX: N23 Unspecified renal colic (principal); I10 Essential (primary) hypertension
CPT/HCPCS: 74176; 81001; 96372; 99283; J1170; 81003; 87086

== ENCOUNTER 2023-08-17 08:00 | Outpatient (CLI) | payer OTHER ==
[2023-08-17 16:16] LABS: BILIRUBIN,URINE NEGATIVE (NEGATIVE); CLARITY,URINE CLEAR (CLEAR); GLUCOSE, URINE (UA) NEGATIVE (NEGATIVE); KETONES,URINE (UA) NEGATIVE (NEGATIVE); LEUKOCYTE ESTERASE, URINE NEGATIVE (NEGATIVE); NITRITE,URINE NEGATIVE (NEGATIVE); OCCULT BLOOD,URINE SMALL (NEGATIVE); PROTEIN,URINE NEGATIVE (NEGATIVE); UROBILINOGEN,URINE 0.2 (NORMAL) E.U./dL (NORMAL)
[2023-08-17 16:34] LABS: BACTERIA,URINE None Seen /HPF (None Seen); SQUAMOUS EPITHELIAL CELL,UR NONE SEEN (<= Few); WBC,URINE 0-3 /HPF (0-3)
== END 2023-08-17 23:59 | disposition home or self-care (01) ==
LOC: LAB 08:00
PROVIDERS: ATTEND Urology
DX: N20.0 Calculus of kidney (principal)
CPT/HCPCS: 81001; 87086

== ENCOUNTER 2023-08-22 09:09 | Day surgery (SDC) | payer OTHER ==
[2023-08-22] MEDS: LACTATED RINGERS 1,000 ML IV ONE ×3 (09:13→12:54)
[2023-08-22] MEDS ORDERED: ceFAZolin 2 GM VIAL ONE (09:30)
--- NOTE | 2023-08-22 10:46 | ANESTHESIA ---
Pre-Anesthesia VS, & Labs - Diagnosis kidney stones - Procedure cysto, ureteroscopy Vital Signs: Temp Pulse Resp BP Pulse Ox O2 Flow Rate 36.8 C 84 23 147/97 H 96 08/22/23 09:18 08/22/23 09:18 08/22/23 09:18 08/22/23 09:18 08/22/23 09:18 Height: 5 ft 11 in Weight (kg): 131.6 kg Body Mass Index: 40.4 BMI Classification: Morbidly Obese - NPO >8 hours Home Medications and Allergies Home Medications: Ambulatory Orders Amitriptyline [Elavil] 30 mg PO HS 08/22/23 Amlodipine Besylate [Norvasc] 10 mg PO DAILY 08/22/23 hydroCHLOROthiazide [Hydrodiuril] 12.5 mg PO DAILY 08/22/23 Multivitamin [Multiple Vitamins] 1 each PO DAILY 06/30/18 Olmesartan/Amlodipin/Hcthiazid [Tribenzor 40-5-12.5 mg Tablet] 1 tab ORAL DAILY 09/04/22 Amitriptyline [Elavil] 30 mg PO HS 08/22/23 Amlodipine Besylate [Norvasc] 10 mg PO DAILY 08/22/23 hydroCHLOROthiazide [Hydrodiuril] 12.5 mg PO DAILY 08/22/23 Allergies/Adverse Reactions: Allergies Allergy/AdvReac Type Severity Reaction Status Date / Time No Known Drug Allergies Allergy Verified 08/22/23 09:41 Anes History & Medical History - Anesthetic History Anesthesia Complications: reports: No previous complications - Medical History Cardiovascular: reports: Hypertension Pulmonary: reports: None Gastrointestinal: reports: Cholelithiasis Urinary: reports: Kidney stones Neuro: reports: None Musculoskeletal: reports: None Endocrine/Autoimmune: reports: None Blood Disorders: reports: None Skin: reports: None Smoking Status: Never smoker History of Cancer?: No Other Past Medical History: very hard of hearing - Surgical History General: reports: Cholecystectomy Urologic: reports: Kidney stents, Ureterolithotomy (stones) Exam General: Alert, Oriented x3 Dental: WNL Mouth Opening: Greater than 4 Fingerbreadths Neck Mobility: Normal Mallampati classification: II Thyromental Distance: greater than 6 cm Respiratory: Lungs clear Cardiovascular: Regular rate, Normal S1, Normal S2 Plan Anesthesia Type: General Consent for Procedure(s) Verified and Reviewed: Yes Code Status: Attempt Resuscitation ASA classification: 2-Mild systemic disease Is this case an emergency?: No
[2023-08-22] MEDS ORDERED: ONDANSETRON 4 MG/2 ML VIAL IVP PRN ×2 (10:47→12:50)
[2023-08-22] MEDS ORDERED: ATROPINE ABBOJECT 1 MG/10 ML SYRINGE IVP PRN (10:47)
[2023-08-22] MEDS ORDERED: NALOXONE 0.4 MG/ML VIAL IVP PRN (10:47)
[2023-08-22] MEDS ORDERED: ePHEDrine 50 MG/ML VIAL IVP PRN (10:47)
[2023-08-22] MEDS ORDERED: MORPHINE 2 MG/ML CARPUJECT IVP PRN (10:47)
[2023-08-22] MEDS ORDERED: METOCLOPRAMIDE 10 MG/2 ML VIAL IVP PRN (10:47)
[2023-08-22] MEDS ORDERED: HYDROmorphone 0.5 MG/0.5 ML SYRINGE IVP PRN (10:47)
[2023-08-22] MEDS ORDERED: fentaNYL 100 MCG/2 ML VIAL IVP PRN (10:47)
[2023-08-22] MEDS ORDERED: LACTATED RINGERS 1,000 ML IV SCH (11:00)
[2023-08-22] MEDS ORDERED: fentaNYL 100 MCG/2 ML VIAL ONE (11:25)
[2023-08-22] MEDS ORDERED: LIDOCAINE-PF 2% 10 ML AMP SUBQ ONE (11:25)
[2023-08-22] MEDS ORDERED: MIDAZOLAM 2 MG/2 ML VIAL ONE (11:25)
[2023-08-22] MEDS ORDERED: PROPOFOL 200 MG/20 ML VIAL IVP ONE (11:25)
[2023-08-22] MEDS ORDERED: iohexoL-240 10 ML VIAL IVP ONE (11:29)
[2023-08-22] MEDS ORDERED: LIDOCAINE 2% URO-JET 5 ML SYRINGE UR ONE ×2 (11:29→12:36)
[2023-08-22] MEDS: LIDOCAINE 2% URO-JET 5 ML SYRINGE UR ONE (12:04)
[2023-08-22] MEDS ORDERED: DEXAMETHASONE 4 MG/ML VIAL ONE (12:19)
[2023-08-22] MEDS ORDERED: ROCURONIUM 50 MG/5 ML VIAL ONE (12:19)
[2023-08-22] MEDS ORDERED: ONDANSETRON 4 MG/2 ML VIAL ONE (12:19)
[2023-08-22] MEDS ORDERED: SUGAMMADEX 200 MG/2 ML VIAL IVP ONE (12:20)
[2023-08-22] MEDS ORDERED: KETOROLAC 30 MG/ML VIAL ONE (12:22)
[2023-08-22] MEDS ORDERED: HYDROcod/ACETAM 5/325 MG TABLET PO PRN (12:50)
--- NOTE | 2023-08-22 12:58 | Discharge Plan ---
Discharge Plan Problem Reviewed?: Yes Disposition: Home, Self Care Condition: Good Prescriptions: Docusate Sodium 100Mg Capsule [Colace 100Mg Capsule] 100 mg PO DAILY #7 cap oxyBUTYnin chloride [Oxybutynin Chloride ER] 5 mg PO DAILY PRN #7 tab PRN Reason: Bladder Spasms oxyCODONE [Roxicodone] 5 mg PO Q4H PRN #10 tablet PRN Reason: Pain Diet: Regular Activity Restrictions: No Restrictions Shower Restrictions: No Driving Restrictions: No (Do not drive while taking pain medications) Instruction Topics: Stents Ureteral Additional Instructions or Follow Up instructions: You will be contacted for follow-up next week for cystoscopy and bilateral stent removal in the office. Please take your antibiotic pill on the way to this appointment No Smoking: If you smoke, Please STOP! Call for help. Follow-up with: Saurabh Crowder MD [Provider Admit Priv/Credential] -
--- NOTE | 2023-08-22 13:04 | OPERATIVE REPORT ---
Operative Report - General Procedure Date: 08/22/23 Planned Procedure: Cystoscopy, bilateral ureteroscopy, bilateral laser lithotripsy, bilateral ureteral stent placement Pre-Op Diagnosis: Bilateral ureteral stones Procedure Performed: Cystoscopy, Biilateral flexible ureteroscopy Left ureteral dilation Bilateral laser lithotripsy Bilateral ureteral stent placement Post Op Diagnosis: Bilateral ureteral stones - Procedure Note Primary Surgeon: Vel Anesthesia Provider: MELODY Francis Anesthesia Technique: General ET tube Pathology: left ureteral stone Estimated Blood Loss (mL): 1 Findings: Right 3 mm UVJ stone with narrow right UVJ Left proximal 4 mm ureteral stone, 2 mm mid renal stone Complications: none - Other Other Information/Narrative: After informed consent was obtained the patient was brought to the OR and laid the supine position. The patient was anesthetized per anesthesia protocols and prepped and draped in usual sterile fashion in the dorsolithotomy position. A formal timeout was performed reconfirming the patient, procedure and laterality. A 22 Lithuanian cystoscope was advanced easily into urinary bladder. The bladder inspected and full there were no masses, lesions or other concerns. There was no stone seen. His right ureteral orifice was quite narrow. We emptied his bladder and then used a short semirigid ureteroscope and used a sensor wire to cannulate the UVJ which was slightly challenging we were then able to ride the sensor wire into the UVJ to gently dilated. The sensor wire was left in place and then the ureteroscope was advanced next to the wire. We could see that there was a 3 mm flat yellow crystalline stone in place just proximal to the UVJ. Using a 272 m laser fiber at a power of 0.8 and a rate of 8 we dusted the stone. We then placed a 6 Lithuanian 28 cm double-J ureteral stent with good curling noted in the kidney and good curling noted in the bladder. Attention was then paid to the left side where again his left ureteral orifice appeared narrow we placed a sensor wire up into the kidney. No stones were seen or radiopacities. A second wire was placed up into the kidney. We used a 8/10 ureteral dilator to dilate the distal ureter. We then used the wire as a guide for flexible ureteroscope to advanced up into the kidney. Up in the kidney we saw 2 mm left renal stone behind a small infundibulum. We used a 272 m laser fiber at a power of 0.8 and a rate of 8 to dust this stone. As we pulled the ureteroscope back we then saw the expected 4 mm left proximal ureteral stone which again was yellow and crystalline. Using a laser fiber we dusted the stone as well. A larger fragments was grasped and was brought out for analysis. There were only stone dust seen otherwise in the ureter. Using a cystoscope a 6 Lithuanian 28 cm double-J ureteral stent was placed with good curling noted in the kidney and good curling of the bladder. The bladder was emptied and a Uro-Jet was placed. This concluded the procedure and the patient tolerated the procedure well. He was reversed from anesthesia and brought to PACU without further incident. He will follow-up next week for cystoscopy and bilateral stent removal in the office. All counts were correct
[2023-08-22 14:03] VITALS: BP 141/90; O2SAT 98
--- NOTE | 2023-08-22 14:16 | XRAY Report ---
PROCEDURE: OR C-Arm Procedure INDICATIONS: Stent placement FLUORO TIME: 000.4 TECHNIQUE: Fluoroscopic guidance utilized for a bilateral nephroureteral stent placement COMPARISON: CT 08/04/2023 FINDINGS: Fluoroscopic guidance utilized for a bilateral nephroureteral stent placement. IMPRESSION: Fluoroscopic guidance. Reviewed by: Cleveland Merchant MD on 08/22/2023 2:14 PM PST Approved by: Cleveland Merchant MD on 08/22/2023 2:14 PM PST Station ID: [id number]
--- NOTE | 2023-08-22 15:16 | ANESTHESIA POST OP EVALUATION ---
Anesthesia Post Eval - Post Anesthesia Eval Vitals: Last Vital Signs Temp 36.2 C L 08/22/23 13:50 Pulse 72 08/22/23 13:50 Resp 19 08/22/23 13:50 BP 141/90 H 08/22/23 13:50 Pulse Ox 98 08/22/23 13:50 O2 Flow Rate CV Function Including HR & BP: Stable Pain Control: Satisfactory Nausea & Vomiting: Negative Mental Status: Baseline Respiratory Status: Airway Patent Hydration Status: Satisfactory Anesthesia Complications: None
== END 2023-08-22 09:10 | disposition home or self-care (01) ==
LOC: SDS 09:09
PROVIDERS: ATTEND Urology
DX: N20.2 Calculus of kidney with calculus of ureter (principal); I10 Essential (primary) hypertension
CPT/HCPCS: 52356; 82365; C1758; J7120; Q9966

== ENCOUNTER 2023-08-27 12:36 | Emergency (ER) | payer OTHER ==
[2023-08-27 13:14] LABS: BASOPHILS # (AUTO) 0.1 10^3/uL (0.0-0.1); BASOPHILS % (AUTO) 0.7 %; EOSINOPHILS # (AUTO) 0.5 10^3/uL (0.0-0.7); EOSINOPHILS % (AUTO) 4.9 %; HCT - HEMATOCRIT 45.9 % (42.0-52.0); HGB - HEMOGLOBIN 14.7 g/dL (14.0-18.0); LYMPHOCYTES # (AUTO) 2.4 10^3/uL (1.5-3.5); LYMPHOCYTES % (AUTO) 25.3 %; MEAN CORPUSCULAR HEMOGLOBIN 25.9 pg (27.0-31.0); MEAN PLATELET VOLUME 9.3 fL (7.4-11.4); MONOCYTES # (AUTO) 0.8 10^3/uL (0.0-1.0); MONOCYTES % (AUTO) 8.2 %; NEUTROPHILS # (AUTO) 5.8 10^3/uL (1.5-6.6); NEUTROPHILS % (AUTO) 60.5 %; PLT - PLATELET COUNT 346 10^3/uL (130-450); RED BLOOD COUNT 5.67 10^6/uL (4.70-6.10); RED CELL DISTRIBUTION WIDTH 12.4 % (12.0-15.0); WHITE BLOOD COUNT 9.6 x10^3/uL (4.8-10.8)
[2023-08-27 13:20] LABS: BILIRUBIN,URINE NEGATIVE (NEGATIVE); GLUCOSE, URINE (UA) NEGATIVE (NEGATIVE); KETONES,URINE (UA) NEGATIVE (NEGATIVE); LEUKOCYTE ESTERASE, URINE SMALL (NEGATIVE); NITRITE,URINE POSITIVE (NEGATIVE); OCCULT BLOOD,URINE LARGE (NEGATIVE); PROTEIN,URINE >=300 mg/dL (NEGATIVE); UROBILINOGEN,URINE 0.2 (NORMAL) E.U./dL (NORMAL)
[2023-08-27] MEDS: HYDROmorphone 1 MG/ML CARPUJECT IVP STA ×2 (13:21→15:19)
[2023-08-27 13:22] LABS: CLARITY,URINE BLOODY (CLEAR)
[2023-08-27 13:28] LABS: BACTERIA,URINE None Seen /HPF (None Seen); RBC,URINE TNTC /HPF (0-5); SQUAMOUS EPITHELIAL CELL,UR NONE SEEN (<= Few)
[2023-08-27 13:29] LABS: ALBUMIN/GLOBULIN RATIO 1.1 (1.0-2.2); BILIRUBIN,TOTAL 0.4 mg/dL (0.2-1.0); CALCIUM 9.6 mg/dL (8.5-10.3); CREATININE 0.8 mg/dL (0.6-1.3); POTASSIUM 3.8 mmol/L (3.5-4.5); TOTAL PROTEIN 7.6 g/dL (6.4-8.9)
[2023-08-27] MEDS ORDERED: IOVERSOL 320 100 ML VIAL IVP ONE (13:31)
[2023-08-27] MEDS: iohexoL-300 100 ML VIAL IVP ONE (14:49)
--- NOTE | 2023-08-27 15:14 | ED Physician Documentation ---
History of Present Illness - Stated complaint Stated Complaint: , CHILLS - Chief complaint Chief Complaint: Abd Pain - History obtained from History obtained from: Patient - History of Present Illness Timing: Today Pain level max: 8 Pain level now: 8 - Additonal information Additional information: Patient is a 48-year-old male who underwent double ureteral stents on Tuesday for nephrolithiasis. He states he is having increasing pain. He has not been using the oxycodone that he was prescribed at home for pain. He has been taking Motrin. He is also on Flomax and oxybutynin. No fevers, but occasionally will feel a chill. No headache. No nausea or vomiting. Does have blood in the urine. He states that the last time he had ureteral stents he had blood in the urine as well. Review of Systems Constitutional: denies: Fever, Myalgias Eyes: denies: Photophobia Ears: denies: Ear pain Nose: denies: Rhinorrhea / runny nose, Congestion GI: denies: Vomiting, Diarrhea Skin: denies: Rash Musculoskeletal: denies: Neck pain, Back pain Neurologic: denies: Headache PD PAST MEDICAL HISTORY - Past Medical History Cardiovascular: Hypertension Respiratory: None Neuro: None Endocrine/Autoimmune: None GI: Cholelithiasis : Kidney stones HEENT: Chronic hearing loss Psych: None Musculoskeletal: None Derm: None - Past Surgical History Past Surgical History: No General: Cholecystectomy - Present Medications Home Medications: Ambulatory Orders Medication Instructions Recorded Confirmed Multivitamin [Multiple Vitamins] 1 each PO DAILY 06/30/18 08/22/23 Olmesartan/Amlodipin/Hcthiazid 1 tab ORAL DAILY 09/04/22 08/22/23 [Tribenzor 40-5-12.5 mg Tablet] Oxycodone HCl/Acetaminophen 1 - 2 each PO Q6H PRN #14 tablet 08/04/23 08/22/23 [Percocet 5-325 mg Tablet] Tamsulosin [Flomax] 0.4 mg PO DAILY #14 cap 08/04/23 08/22/23 Amitriptyline [Elavil] 30 mg PO HS 08/22/23 08/22/23 Amlodipine Besylate [Norvasc] 10 mg PO DAILY 08/22/23 08/22/23 Docusate Sodium 100Mg Capsule 100 mg PO DAILY #7 cap 08/22/23 [Colace 100Mg Capsule] cephALEXin [Keflex] 500 mg PO ONCE #1 cap 08/22/23 hydroCHLOROthiazide [Hydrodiuril] 12.5 mg PO DAILY 08/22/23 08/22/23 oxyBUTYnin chloride [Oxybutynin 5 mg PO DAILY PRN #7 tab 08/22/23 Chloride ER] oxyCODONE [Roxicodone] 5 mg PO Q4H PRN #10 tablet 08/22/23 Oxycodone HCl/Acetaminophen 1 - 2 each PO Q6H PRN #14 tablet 08/27/23 [Percocet 5-325 mg Tablet] MDD 6 tabs - Allergies Allergies/Adverse Reactions: Allergies Allergy/AdvReac Type Severity Reaction Status Date / Time No Known Drug Allergies Allergy Verified 08/27/23 12:49 - Social History Does the pt smoke?: No Smoking Status: Never smoker Does the pt drink ETOH?: No Does the pt have substance abuse?: No - Immunizations Immunizations are current?: Yes - POLST Patient has POLST: No PD ED PE NORMAL - Vitals Vital signs reviewed: Yes - General General: Alert and oriented X 3, No acute distress - HEENT HEENT: PERRL, Moist mucous membranes - Neck Neck: Supple, no meningeal sign - Cardiac Cardiac: RRR, Strong equal pulses - Respiratory Respiratory: No respiratory distress, Clear bilaterally - Abdomen Abdomen: Soft, Non tender, Non distended - Back Back: No CVA TTP, No spinal TTP - Derm Derm: Warm and dry - Extremities Extremities: No edema - Neuro Neuro: Alert and oriented X 3 - Psych Psych: Normal mood, Normal affect Results - Vitals Vitals: Vital Signs - 24 hr 08/27/23 08/27/23 12:43 15:05 Temperature 36.4 C L Heart Rate 91 Respiratory 18 Rate Blood Pressure 171/95 H O2 Saturation 97 93 Oxygen O2 Source Room air - Labs Labs: Laboratory Tests 08/27/23 08/27/23 08/27/23 12:57 13:08 13:08 WBC 9.6 RBC 5.67 Hgb 14.7 Hct 45.9 MCV 81.0 MCH 25.9 L MCHC 32.0 RDW 12.4 Plt Count 346 MPV 9.3 Neut # (Auto) 5.8 Lymph # (Auto) 2.4 [place] # (Auto) 0.8 Eos # (Auto) 0.5 Baso # (Auto) 0.1 Absolute Nucleated RBC 0.00 Nucleated RBC % 0.0 Sodium 136 Potassium 3.8 Chloride 102 Carbon Dioxide 27 Anion Gap 7.0 BUN 19 Creatinine 0.8 Estimated GFR (MDRD) 104 Glucose 103 Calcium 9.6 Total Bilirubin 0.4 AST 15 ALT 21 Alkaline Phosphatase 73 Total Protein 7.6 Albumin 4.0 Globulin 3.6 Albumin/Globulin Ratio 1.1 Lipase 24 Urine Color RED/BLOODY Urine Clarity BLOODY Urine pH 7.0 Ur Specific [place] 1.020 Urine Protein >=300 H Urine Glucose (UA) NEGATIVE Urine Ketones NEGATIVE Urine Occult Blood LARGE H Urine Nitrite POSITIVE H Urine Bilirubin NEGATIVE Urine Urobilinogen 0.2 (NORMAL) Ur Leukocyte Esterase SMALL H Urine RBC TNTC H Urine WBC 4-5 Ur Squamous Epith Cells NONE SEEN Urine Bacteria None Seen Ur Microscopic Review INDICATED Urine Culture Comments INDICATED - Rads (name of study) CT abdomen pelvis Relevant Findings:: Final report received, See rad report PD Medical Decision Making - ED course Complexity details: reviewed results, re-evaluated patient, considered differential, d/w patient ED course: Patient is a 48-year-old male who presents to the emergency department with pain after double ureteral stents. His white blood cell count is normal. Afebrile here. No evidence of sepsis. His urinalysis appears consistent with postprocedural stent placement. CT shows the stents are in the correct positioning. Mild left-sided hydronephrosis. Pain well-controlled in the emergency department after a dose of IV Dilaudid. Discussed the case with Dr. Crowder, urology on-call, recommends continuing oxybutynin, Flomax, NSAIDs, oxycodone as needed for pain and follow-up in the office next week. Patient counseled regarding signs and symptoms for which I believe and urgent re- evaluation would be necessary. Patient with good understanding of and agreement to plan and is comfortable going home at this time This document was made in part using voice recognition software. While efforts are made to proofread this document, sound alike and grammatical errors may occur. Departure - Departure Disposition: 01 Home, Self Care Clinical Impression: Other acute postprocedural pain Condition: Good Instructions: Stents Ureteral Follow-Up: Saurabh Crowder MD [Provider Admit Priv/Credential] - Prescriptions: Oxycodone HCl/Acetaminophen [Percocet 5-325 mg Tablet] 1 - 2 each PO Q6H PRN #14 tablet MDD 6 tabs PRN Reason: pain Comments: Your prescriptions were sent to [facility] in [place]. Please contact Dr. Crowder's office on Tuesday for a follow-up appointment. Please return if you have fevers, worsening pain or other new or worrisome symptoms. Dr. Crowder recommends continuing the Flomax, oxybutynin and Motrin/Advil [id number]. Add oxycodone as needed. Follow-up with his office on Tuesday. I am prescribing a short course of narcotic pain medication for you. These are potentially dangerous and addictive medications that should be used carefully. These medications may constipate you. Take an vkab-yvi-ysoeegf stool softener (docusate) twice daily with plenty of water while taking these medications. If you go 24 hours without a bowel movement, take [id number] miralax, per package instructions. Do not drink or drive while taking these medications. If you received narcotic or sedating medications while in the emergency department, do not drive for 24 hours. Store this medication in a safe, secure place and out of reach of children. It is a violation of federal law to give or sell this medication to another person or to use in a manner other than prescribed. The ED will not refill narcotic prescriptions, including prescriptions lost or stolen. To dispose of unwanted medications: 1. [facility] at [address] in [place] has a medication drop box. They accept prescription medications (in pill form) Tuesday through Tuesday 9:00 a.m. to 5:00 p.m. 2. [facility] [employer] accepts prescription medications (in pill form only) for disposal year round. Call for more information. 3. Contact the [facility] for the next [facility] sponsored prescription drug collection event. , [phone], or [phone]; PROCEDURE: CT abdomen pelvis with contrast INDICATIONS: B flank pain, s/p ureteral stents TECHNIQUE: Helical axial CT of the abdomen and pelvis was obtained after intravenous contrast administration and reformatted in multiple planes. Radiation dose reduction was achieved using aut omated exposure control or adjustment of mA and/or kV according to patient size. COMPARISON: 08/04/2023 FINDINGS: Lower thorax: The lung bases are clear. Heart size normal. No hiatal hernia. Liver: Normal in size and attenuation. No contour deformity present. Biliary system: Cholecystectomy Pancreas: Unremarkable without mass or inflammation evident. Spleen: Normal in size and density. Adrenals: Normal morphology and density. Reproductive system: Unremarkable as visualized. Urinary system: Bilateral ureteral stents in good position. Mild left-sided hydronephrosis. No right-sided hydronephrosis. There is mild edema adjacent to the ureters, left greater than right. Urinary bladder unremarkable. Gastrointestinal system: The bowel appears unremarkable with no evidence of bowel obstruction or inflammation. The stomach appears unremarkable. Appendix: No findings to suggest acute appendicitis. Peritoneal spaces: No mesenteric or retroperitoneal adenopathy. No free air. No free fluid. Vasculature: The IVC, aorta and iliac vasculature are unremarkable. Abdominal wall: Abdominal wall is intact without evidence of ventral or inguinal hernias. Musculoskeletal: Normal bone mineralization. No acute fractures. IMPRESSION: Mild left-sided hydronephrosis is new from prior exam Bilateral double-J ureteral stents in good position. Bilateral periureteral edema may be postprocedural or reflect ureteritis. Forms: PCP List
--- NOTE | 2023-08-27 15:42 | CT Report ---
PROCEDURE: CT abdomen pelvis with contrast INDICATIONS: B flank pain, s/p ureteral stents TECHNIQUE: Helical axial CT of the abdomen and pelvis was obtained after intravenous contrast adminis tration and reformatted in multiple planes. Radiation dose reduction was achieved using automated exp osure control or adjustment of mA and/or kV according to patient size. COMPARISON: 08/04/2023 FINDINGS: Lower thorax: The lung bases are clear. Heart size normal. No hiatal hernia. Liver: Normal in size and attenuation. No contour deformity present. Biliary system: Cholecystectomy Pancreas: Unremarkable without mass or inflammation evident. Spleen: Normal in size and density. Adrenals: Normal morphology and density. Reproductive system: Unremarkable as visualized. Urinary system: Bilateral ureteral stents in good position. Mild left-sided hydronephrosis. No right -sided hydronephrosis. There is mild edema adjacent to the ureters, left greater than right. Urinary bladder unremarkable. Gastrointestinal system: The bowel appears unremarkable with no evidence of bowel obstruction or inf lammation. The stomach appears unremarkable. Appendix: No findings to suggest acute appendicitis. Peritoneal spaces: No mesenteric or retroperitoneal adenopathy. No free air. No free fluid. Vasculature: The IVC, aorta and iliac vasculature are unremarkable. Abdominal wall: Abdominal wall is intact without evidence of ventral or inguinal hernias. Musculoskeletal: Normal bone mineralization. No acute fractures. IMPRESSION: Mild left-sided hydronephrosis is new from prior exam Bilateral double-J ureteral stents in good position. Bilateral periureteral edema may be postprocedur al or reflect ureteritis. Reviewed by: Kodi Aldana MD on 08/27/2023 2:41 PM AKST Approved by: Kodi Aldana MD on 08/27/2023 2:41 PM AKST Station ID: [id number]
[2023-08-27 16:16] VITALS: BP 133/70; O2SAT 99
== END 2023-08-27 16:07 | disposition home or self-care (01) ==
LOC: ED 12:36
DX: G89.18 Other acute postprocedural pain (principal); I10 Essential (primary) hypertension
CPT/HCPCS: 36415; 74177; 80053; 81001; 83690; 85025; 87086; 96374; 99284; 99285; J1170; Q9967; 81003

== ENCOUNTER 2023-09-01 10:36 | Day surgery (SDC) | payer OTHER ==
[2023-09-01] MEDS: LACTATED RINGERS 1,000 ML IV ONE (10:59)
[2023-09-01] MEDS ORDERED: ePHEDrine 50 MG/ML VIAL IVP PRN (11:18)
[2023-09-01] MEDS ORDERED: fentaNYL 100 MCG/2 ML VIAL IVP PRN (11:18)
[2023-09-01] MEDS ORDERED: NALOXONE 0.4 MG/ML VIAL IVP PRN (11:18)
[2023-09-01] MEDS ORDERED: ATROPINE ABBOJECT 1 MG/10 ML SYRINGE IVP PRN (11:18)
[2023-09-01] MEDS ORDERED: HYDROmorphone 0.5 MG/0.5 ML SYRINGE IVP PRN (11:18)
[2023-09-01] MEDS ORDERED: MORPHINE 2 MG/ML CARPUJECT IVP PRN (11:18)
[2023-09-01] MEDS ORDERED: METOCLOPRAMIDE 10 MG/2 ML VIAL IVP PRN (11:18)
[2023-09-01] MEDS ORDERED: ONDANSETRON 4 MG/2 ML VIAL IVP PRN ×2 (11:18→12:51)
--- NOTE | 2023-09-01 11:18 | ANESTHESIA ---
Pre-Anesthesia VS, & Labs - Diagnosis B ureteral stents - Procedure cystoscopy, B removal stents Vital Signs: Temp Pulse Resp BP Pulse Ox O2 Flow Rate 36.4 C L 79 16 144/94 H 96 09/01/23 11:01 09/01/23 11:01 09/01/23 11:01 09/01/23 11:01 09/01/23 11:01 Height: 6 ft 2 in Weight (kg): 130.9 kg Body Mass Index: 37.0 BMI Classification: Obese - NPO >8 hours - Lab Results Lab results reviewed: Yes Home Medications and Allergies Multivitamin [Multiple Vitamins] 1 each PO DAILY 06/30/18 Olmesartan/Amlodipin/Hcthiazid [Tribenzor 40-5-12.5 mg Tablet] 1 tab ORAL DAILY 09/04/22 Amitriptyline [Elavil] 30 mg PO HS 08/22/23 Amlodipine Besylate [Norvasc] 10 mg PO DAILY 08/22/23 hydroCHLOROthiazide [Hydrodiuril] 12.5 mg PO DAILY 08/22/23 Allergies/Adverse Reactions: Allergies Allergy/AdvReac Type Severity Reaction Status Date / Time No Known Drug Allergies Allergy Verified 08/27/23 12:49 Anes History & Medical History - Anesthetic History Anesthesia Complications: reports: No previous complications Family history of Anesthesia Complications: Denies Family history of Malignant Hyperthermia: Denies - Medical History Cardiovascular: reports: Hypertension Pulmonary: reports: None Gastrointestinal: reports: Cholelithiasis Urinary: reports: Kidney stones Neuro: reports: None Musculoskeletal: reports: None Endocrine/Autoimmune: reports: None Blood Disorders: reports: None Skin: reports: None Smoking Status: Never smoker - Surgical History General: reports: Cholecystectomy Urologic: reports: Kidney stents (cystoscopy) Exam General: Alert, Oriented x3, Cooperative Dental: WNL Mouth Openin Fingerbreadth Neck Mobility: Normal Mallampati classification: II Thyromental Distance: 4-6 cm Respiratory: Lungs clear, Normal breath sounds, No respiratory distress Cardiovascular: Regular rate Neurological: Normal speech Mental/Cognitive Status: Alert/Oriented X3, Normal for patient Cognitive Status: Within normal limits Plan Anesthesia Type: General Consent for Procedure(s) Verified and Reviewed: Yes Code Status: Attempt Resuscitation ASA classification: 2-Mild systemic disease Is this case an emergency?: No
[2023-09-01] MEDS ORDERED: MIDAZOLAM 2 MG/2 ML VIAL ONE (11:30)
[2023-09-01] MEDS ORDERED: fentaNYL 100 MCG/2 ML VIAL ONE (11:30)
[2023-09-01] MEDS ORDERED: PROPOFOL 200 MG/20 ML VIAL IVP ONE (11:31)
[2023-09-01] MEDS ORDERED: LIDOCAINE-PF 2% 10 ML AMP SUBQ ONE (11:31)
[2023-09-01] MEDS ORDERED: LIDOCAINE 2% URO-JET 5 ML SYRINGE UR ONE (11:37)
[2023-09-01] MEDS ORDERED: LACTATED RINGERS 1,000 ML IV SCH (12:00)
[2023-09-01] MEDS: LIDOCAINE 2% URO-JET 5 ML SYRINGE UR ONE (12:34)
[2023-09-01] MEDS: LACTATED RINGERS 600 ML IV ONE (12:45)
[2023-09-01] MEDS ORDERED: HYDROcod/ACETAM 5/325 MG TABLET PO PRN (12:51)
--- NOTE | 2023-09-01 12:54 | Discharge Plan ---
Discharge Plan Problem Reviewed?: Yes Disposition: Home, Self Care Condition: Good Shower Restrictions: No Driving Restrictions: No Instruction Topics: Kidney Stones Prevent No Smoking: If you smoke, Please STOP! Call for help.
--- NOTE | 2023-09-01 12:58 | OPERATIVE REPORT ---
Operative Report - General Procedure Date: 09/01/23 Planned Procedure: Cystoscopy bilateral stent removal Pre-Op Diagnosis: Bilateral ureteral stents in place Procedure Performed: Cystoscopy bilateral stent removal Post Op Diagnosis: Bilateral ureteral stents in place - Procedure Note Primary Surgeon: Vel Anesthesia Provider: MELODY Munoz Anesthesia Technique: MAC Estimated Blood Loss (mL): 0 Indications: Patient with history of bilateral ureteral stone status post ureteroscopy last week with stent placement. Attempted to take the stent out in the office yesterday but due to hematuria and poor visualization we are unable to perform this there. He was added on for procedure today to remove the stents cystoscopically Findings: Moderate hematuria, no active bleeding Bilateral stents removed Complications: none - Other Other Information/Narrative: After informed consent was obtained the patient was brought to the OR and laid in supine position, the patient was anesthetized per anesthesia protocols, and prepped and draped in usual sterile dorsolithotomy fashion. A timeout was performed reconfirming the patient, procedure and laterality. A Uro-Jet was placed. A 22 Romanian cystoscope was advanced easily into urinary bladder. Both stents were seen. There was moderate amount of hematuria which was again making it difficult to view. We irrigated out his hematuria which improved the visualization. There was some adherent clot on the stents. Using a flexible stent grasper the left stent was removed and then the right stent was removed. Both en bloc. His bladder was emptied. This concluded the procedure the patient tolerated the procedure well he will follow-up in 6 months time with an ultrasound
[2023-09-01 13:28] VITALS: BP 134/88; O2SAT 95
--- NOTE | 2023-09-01 14:43 | ANESTHESIA POST OP EVALUATION ---
Anesthesia Post Eval - Post Anesthesia Eval Vitals: Last Vital Signs Temp 36.3 C L 09/01/23 13:27 Pulse 66 09/01/23 13:27 Resp 16 09/01/23 13:27 BP 134/88 H 09/01/23 13:27 Pulse Ox 95 09/01/23 13:27 O2 Flow Rate CV Function Including HR & BP: Stable Pain Control: Satisfactory Nausea & Vomiting: Negative Mental Status: Baseline Respiratory Status: Airway Patent Hydration Status: Satisfactory Anesthesia Complications: None
== END 2023-09-01 10:37 | disposition home or self-care (01) ==
LOC: SDS 10:36
PROVIDERS: ATTEND Urology
DX: T83.84XA Pain due to genitourinary prosthetic devices, implants and grafts, initial encounter (principal); R31.9 Hematuria, unspecified; Z87.442 Personal history of urinary calculi
CPT/HCPCS: 52310; J7120